=== PATIENT | female | born 1965 | race Caucasian/White ===

== ENCOUNTER 2019-03-26 13:40 | Inpatient (IN) ==
[2019-03-26] MEDS ORDERED: NS 500 ML IV 500 ML IV ONE (13:52)
[2019-03-26] MEDS ORDERED: DUONEB 0.5 MG/3 MG (3 mL) NEB ONE (13:52)
[2019-03-26] MEDS ORDERED: SOLU-Medrol 125 MG VIAL IVP ONE (13:52)
[2019-03-26] MEDS ORDERED: SOLU-Medrol 40 MG VIAL ONE (14:09)
[2019-03-26] MEDS ORDERED: NS 1000 ML 1,000 ML ONE (14:09)
--- NOTE | 2019-03-26 14:17 | DR.SOBA ---
HPI Time Seen Time Seen by Provider: 03/26/19 13:44 Primary Care Physician Primary Care Physician: NIYA Complaints Chief Complaint Doctors Comments: A 53 y/o female presenting with c/o SOB and cough onset yesterday. There is no real exacerbation. She states she has a hx. of COPD but has no maintenance or rescue medications as she can't afford afford meds. She also has a complaint of Rt. hip pain relating to recently being informed that she will need a Rt. hip replacement based on the findings of an MRI study. Chief Complaint:: PT. C/O BODY ACHES, SHORTNESS OF BREATH, COUGH. Reviewed Nurses Notes Reviewed: Yes Source History Provided: Patient Mode of Arrival Mode of Arrival: EMS Timing Onset of Chief Complaint: 03/25/19 Context Onset:: At Rest and With Light Exertion PE Risk Factors:: None History of:: COPD Currently on:: Neither Prehospital Care:: None Modifying Factors Worsens:: Nothing Improves:: Nothing Associated Signs and Symptoms Associated Signs and Symptoms: Cough If Chest Pain Quality: denies Sharp, Stabbing, Squeezing, Pressure like, Heavy, Crushing, Burning, Aching and Pleuritic If Cough Cough: Productive PMH PMH Past Medical History: Yes Past Medical History: CHF and COPD Past Surgical History: Yes Surgical History: , Hysterectomy and Other Past Surgical History Comment: BACK SURGERY Family History History of Family Medical Conditions: Yes Family Medical History: Diabetes Mellitus, Cancer, [place], Coronary Artery Disease, Heart Failure and Hypertension Social History Does patient currently use any type of tobacco product: Yes Have you used tobacco products in the last 12 months: Yes Type of Tobacco Use: Cigarettes Does any household member use tobacco: Yes Alcohol Use: None Do you use any recreational Drugs:: No Lives With: Spouse Lives Where: Home infectious screening In the last 2 months have you had wt loss of >10#?: NO Have you had fever, night sweats or hemotysis?: No Have you traveled outside the country in the last 6 months?: No Isolation: Standard ROS Review of Systems Constitutional: No Symptoms Reported Eyes: No Symptoms Reported ENTM: No Symptoms Reported Respiratoy: Productive Cough and Short of Breath Cardiovascular: No Symptoms Reported Gastrointestinal/Abdominal: No Symptoms Reported Genitourinary: No Symptoms Reported Neurological: No Symptoms Reported Musculoskeletal: Joint Pain (Rt. Hip) Integumentary: No Symptoms Reported Hematologic/Lymphatic: No Symptoms Reported Endocrine: No Symptoms Reported Psychiatric: No Symptoms Reported PE Vital Signs Vitals: Temperature 99.5 F Pulse Rate 99 Respiratory Rate 22 Blood Pressure [Left Arm] 131/63 Blood Pressure 107/59 O2 Sat by Pulse Oximetry 97 General Limitations: No Limitations General Appearance: Alert and In No Apparent Distress Head Head Exam: Normal Inspection, Atraumatic and Normocephalic Eyes Eye exam: Normal Appearance and EOMI ENT ENT Exam: Normal Exam, Normal Oropharynx and Mucous Membranes Moist Neck Neck Exam: Normal Inspection, Full ROM and Trachea Midline Chest Chest Inspection: Normal Inspection and Symmetric Chest Wall Rise Respiratory Respiratory Exam: Normal Lung Sounds Bilat Cardiovascular Cardiovascular Exam: Regular Rate, Normal Rhythm, +S1 and +S2 Abdominal Exam Abdominal Exam: Normal Inspection, Normal Bowel Sounds and Soft Extremities Extremities Exam: Normal Inspection and Full ROM Back Back Exam: Normal Inspection and Full ROM Neurologic Neurological Exam: Alert and Oriented X3 Psychiatric Psychiatric Exam: Normal Affect and Normal Mood Skin Skin Exam: Dry and Normal Color COURSE Reevaluation 1st: Improved 2nd: Improved Consultation Consultation Comments: I spoke with Dr. Bell, her PCP. He agrees to recommendation for admission. [facility] Labs Reviewed Laboratory Results Reviewed?: Yes Result Diagrams: 03/26/19 14:15 Laboratory: WBC 13.2 X10^3/uL (3.6-10.0) H 03/26/19 14:15 RBC 3.61 X10^6/uL (3.5-5.4) 03/26/19 14:15 Hgb 12.3 g/dL (12.0-16.0) 03/26/19 14:15 Hct 34.4 % (36.0-47.0) L 03/26/19 14:15 MCV 95.4 fL (80.0-100.0) 03/26/19 14:15 MCH 33.9 pg (27.0-34.0) 03/26/19 14:15 MCHC 35.6 g/dL (33.0-35.0) H 03/26/19 14:15 RDW 13.3 % (11.6-16.5) 03/26/19 14:15 Plt Count 414 X10^3/uL (150.0-450.0) 03/26/19 14:15 MPV 7.7 fL (7.4-11.0) 03/26/19 14:15 Neut % (Auto) 76.4 % (42.0-75.0) H 03/26/19 14:15 Lymph % (Auto) 15.8 % (21.0-51.0) L 03/26/19 14:15 [place] % (Auto) 6.2 % (0.0-13.0) 03/26/19 14:15 Eos % (Auto) 1.3 % (0.9-2.9) 03/26/19 14:15 Baso % (Auto) 0.3 % (0.2-1.0) 03/26/19 14:15 Neut # (Auto) 10.1 x10^3/uL (2.2-4.8) H 03/26/19 14:15 Lymph # (Auto) 2.1 X10^3/uL (1.3-2.9) 03/26/19 14:15 Andrews # (Auto) 0.8 x10^3/uL (0.3-0.8) 03/26/19 14:15 Eos # (Auto) 0.2 x10^3/uL (0.0-0.2) 03/26/19 14:15 Baso # (Auto) 0.0 X10^3/uL (0.0-0.1) 03/26/19 14:15 Absolute Nucleated RBC 0.0 /100WBC 03/26/19 14:15 Specimen Type Catherized urine 03/26/19 16:31 Urine Color Yellow (YELLOW) 03/26/19 16:31 Urine Appearance Clear (CLEAR) 03/26/19 16:31 Urine pH 7.0 (5.0 - 8.0) 03/26/19 16:31 Ur Specific [place] 1.010 (1.000-1.030) 03/26/19 16:31 Urine Protein Negative (NEGATIVE) 03/26/19 16:31 Urine Glucose (UA) Negative (NEGATIVE) 03/26/19 16:31 Urine Ketones Negative (NEGATIVE) 03/26/19 16:31 Urine Occult Blood Negative (NEGATIVE) 03/26/19 16:31 Urine Nitrite Negative (NEGATIVE) 03/26/19 16:31 Urine Bilirubin Negative (NEGATIVE) 03/26/19 16:31 Urine Urobilinogen Normal (NORMAL) 03/26/19 16:31 Ur Leukocyte Esterase Negative (NEGATIVE) 03/26/19 16:31 Influenza Type A (PCR) Negative (NEGATIVE) 03/26/19 13:59 Influenza Type B (PCR) Negative (NEGATIVE) 03/26/19 13:59 Other Results Comments: History: Shortness of breath Study: Portable upright AP chest Comparison: None Findings: The heart size is normal. There are increased diffuse interstitial lung markings. There is no obvious pleural effusion. There are bilateral apparent breast prostheses. There is no effusion. Impression: Nonspecific increased interstitial lung markings the could be chronic if appropriate exposure history or may represent interstitial edema or pneumonitis. Reported By: XRAY Interpreted by: Self XRAY Findings: Reticular infiltrates b/l. Opioid Opioid Risk Tool Age (Juan Manuel box if 16-45): No History of Preadolescent Sexual Abuse: No Total: 0 Total Score Risk Category: Low Risk Copyright: Bo WERNER predicting aberrant behaviors Diagnosis Discharge Problem: Pulmonary edema with congestive heart failure COPD (chronic obstructive pulmonary disease) Qualifiers: COPD type: unspecified COPD Qualified Code(s): J44.9 - Chronic obstructive pulmonary disease, unspecified
[2019-03-26] MEDS ORDERED: DUONEB 0.5 MG/3 MG (3 mL) ONE (14:21)
[2019-03-26 14:28] LABS: BASOPHILS % (AUTO) 0.3 % (0.2-1.0); EOSINOPHILS # (AUTO) 0.2 x10^3/uL (0.0-0.2); EOSINOPHILS % (AUTO) 1.3 % (0.9-2.9); HEMATOCRIT 34.4 % (36.0-47.0); HEMOGLOBIN 12.3 g/dL (12.0-16.0); LYMPHOCYTES # (AUTO) 2.1 X10^3/uL (1.3-2.9); LYMPHOCYTES % (AUTO) 15.8 % (21.0-51.0); MEAN CORPUSCULAR HEMOGLOBIN 33.9 pg (27.0-34.0); MEAN CORPUSCULAR HGB CONC 35.6 g/dL (33.0-35.0); MEAN CORPUSCULAR VOLUME 95.4 fL (80.0-100.0); MEAN PLATELET VOLUME 7.7 fL (7.4-11.0); MONOCYTES # (AUTO) 0.8 x10^3/uL (0.3-0.8); MONOCYTES % (AUTO) 6.2 % (0.0-13.0); NEUTROPHILS # (AUTO) 10.1 x10^3/uL (2.2-4.8); NEUTROPHILS % (AUTO) 76.4 % (42.0-75.0); PLATELET COUNT 414 X10^3/uL (150.0-450.0); RED BLOOD COUNT 3.61 X10^6/uL (3.5-5.4); RED CELL DISTRIBUTION WIDTH 13.3 % (11.6-16.5); WHITE BLOOD COUNT 13.2 X10^3/uL (3.6-10.0)
[2019-03-26] MEDS ORDERED: LEVAQUIN PREMIX IV 500 MG 500 MG/100 ML BAG IV ONE ×3 (14:52→17:21)
--- NOTE | 2019-03-26 15:07 | RAD ---
History: Shortness of breathStudy: Portable upright AP chestComparison: NoneFindings: The heart size is normal. There are increased diffuse interstitial lung markings. There is no obvious pleural effusion. There are bilateral apparent breast prostheses. There is no effusion.Impression: Nonspecific increased interstitial lung markings the could be chronic if appropriate exposure history or may represent interstitial edema or pneumonitis.Reported By:
[2019-03-26] MEDS ORDERED: LASIX IVP ONE ×2 (15:14→15:17)
[2019-03-26 16:24] LABS: BILIRUBIN,URINE NEGATIVE (NEGATIVE); BLOOD/HEMOGLOBIN,URINE NEGATIVE (NEGATIVE); GLUCOSE, URINE NEGATIVE (NEGATIVE); KETONES,URINE NEGATIVE (NEGATIVE); LEUKOCYTE ESTERASE ,URINE NEGATIVE (NEGATIVE); NITRITES,URINE NEGATIVE (NEGATIVE); PROTEIN,URINE NEGATIVE (NEGATIVE); UROBILINOGEN,URINE NORMAL (NORMAL)
[2019-03-26 16:25] LABS: APPEARANCE,URINE CLEAR (CLEAR); COLOR,URINE PALE YELLOW (YELLOW)
[2019-03-26 16:40] LABS: BILIRUBIN,URINE NEGATIVE (NEGATIVE); BLOOD/HEMOGLOBIN,URINE NEGATIVE (NEGATIVE); GLUCOSE, URINE NEGATIVE (NEGATIVE); KETONES,URINE NEGATIVE (NEGATIVE); LEUKOCYTE ESTERASE ,URINE NEGATIVE (NEGATIVE); NITRITES,URINE NEGATIVE (NEGATIVE); PROTEIN,URINE NEGATIVE (NEGATIVE); UROBILINOGEN,URINE NORMAL (NORMAL)
[2019-03-26 16:46] LABS: APPEARANCE,URINE CLEAR (CLEAR); COLOR,URINE YELLOW (YELLOW)
[2019-03-26 17:32] LABS: BLOOD UREA NITROGEN 8 mg/dL (7-18); CALCIUM 8.9 mg/dL (8.5-10.1); CARBON DIOXIDE 28.7 mmol/L (21-32); CHLORIDE 101 mmol/L (98-107); CREATININE 0.61 mg/dL (0.55-1.02); SODIUM 137 mmol/L (136-145); eGFR NON BLACK RACES > 60 (>60)
[2019-03-26 17:40] LABS: ALANINE AMINOTRANSFERASE 17 Units/L (12-78); ALKALINE PHOSPHATASE 91 Units/L (46-116); ASPARTATE AMINO TRANSFERASE 24 Units/L (15-37); COR CA(FOR HYPOALB) 9.7 mg/dL (8.5-10.1); TOTAL PROTEIN 7.5 g/dL (6.4-8.2)
[2019-03-26] MEDS ORDERED: POTASSIUM CHLORIDE LIQ 20 MEQ UDC PO PRN (17:47)
[2019-03-26] MEDS ORDERED: POTASSIUM CHL 60 MEQ/NS 0.45% 500 ML IV PRN (17:47)
[2019-03-26] MEDS ORDERED: K-RIDER 10 MEQ/NS 100 ML 10 MEQ/100 ML BAG IV PRN (17:47)
[2019-03-26] MEDS ORDERED: KLOR-CON PO PRN (17:47)
[2019-03-26] MEDS ORDERED: POTASSIUM CHL 40 MEQ/NS 0.45% 500 ML IV PRN (17:47)
[2019-03-26] MEDS ORDERED: MAGNESIUM SULFATE 1 GRAM/100 mL PREMIX 1 GM/100 ML BAG IV PRN (17:47)
[2019-03-26] MEDS ORDERED: MICRO K EXTEN CAP 10 MEQ PO PRN (17:47)
[2019-03-26] MEDS ORDERED: K-DUR TAB 20 MEQ PO ONE (18:00)
[2019-03-26] MEDS: K-DUR TAB 20 MEQ PO PRN ×2 (18:12→23:51)
[2019-03-26 19:06] VITALS: BMI 28.1
[2019-03-26] MEDS ORDERED: PREVNAR 13 IM ONE (19:06)
[2019-03-26] MEDS ORDERED: AFLURIA II4 or FLUARIX II4 IM ONE (19:06)
[2019-03-26] MEDS: DUONEB 0.5 MG/3 MG (3 mL) NEB SCH (21:07)
[2019-03-27] MEDS: DUONEB 0.5 MG/3 MG (3 mL) NEB SCH ×7 (00:20→20:39)
--- NOTE | 2019-03-27 06:20 | RAD ---
HISTORY: Follow-up pneumoniaStudy: Chest AP portableComparison: 03/26/2019Findings:The heart is enlarged. No definite congestive heart failure is noted. There is a question of a new infiltrate abutting the minor fissure in the right upper lobe. Follow-up of this area is recommended. The remainder of the lung baugh are clear. Bony thorax is unremarkable.IMPRESSION: Mild cardiomegaly without congestive heart failureQuestionable new infiltrate abutting the minor fissure in the right upper lobe. Follow-up of this area is recommended.Reported By:
[2019-03-27 06:45] LABS: BASOPHILS % (AUTO) 0.2 % (0.2-1.0); HEMOGLOBIN 12.2 g/dL (12.0-16.0); LYMPHOCYTES # (AUTO) 1.5 X10^3/uL (1.3-2.9); LYMPHOCYTES % (AUTO) 8.2 % (21.0-51.0); MEAN CORPUSCULAR HEMOGLOBIN 30.5 pg (27.0-34.0); MEAN CORPUSCULAR VOLUME 92.3 fL (80.0-100.0); MEAN PLATELET VOLUME 8.4 fL (7.4-11.0); MONOCYTES # (AUTO) 1.2 x10^3/uL (0.3-0.8); MONOCYTES % (AUTO) 6.2 % (0.0-13.0); NEUTROPHILS % (AUTO) 85.4 % (42.0-75.0); PLATELET COUNT 445 X10^3/uL (150.0-450.0); RED CELL DISTRIBUTION WIDTH 13.6 % (11.6-16.5); WHITE BLOOD COUNT 18.7 X10^3/uL (3.6-10.0)
[2019-03-27 07:02] LABS: ALANINE AMINOTRANSFERASE 18 Units/L (12-78); ALBUMIN 2.9 g/dL (3.4-5.0); ALKALINE PHOSPHATASE 111 Units/L (46-116); ASPARTATE AMINO TRANSFERASE 26 Units/L (15-37); BLOOD UREA NITROGEN 10 mg/dL (7-18); CALCIUM 8.9 mg/dL (8.5-10.1); CARBON DIOXIDE 24.9 mmol/L (21-32); CHLORIDE 102 mmol/L (98-107); COR CA(FOR HYPOALB) 9.8 mg/dL (8.5-10.1); COR NA(FOR HYPERGLY) 137 mmol/L (136-145); SODIUM 136 mmol/L (136-145); TOTAL PROTEIN 7.5 g/dL (6.4-8.2); eGFR NON BLACK RACES > 60 (>60)
[2019-03-27] MEDS: LASIX IVP SCH (09:29)
[2019-03-27] MEDS: K-DUR TAB 20 MEQ PO PRN (09:29)
[2019-03-27] MEDS: LEVAQUIN PREMIX IV 500 MG 500 MG/100 ML BAG IV SCH (09:29)
[2019-03-27] MEDS: XANAX PO PRN ×2 (12:44→23:11)
[2019-03-27] MEDS: NORCO 10/325 TAB PO PRN ×2 (12:45→20:52)
--- NOTE | 2019-03-27 13:18 | DR.H&P ---
H&P - History & Physical for Day of: H&P Date: 03/26/19 - Chief Complaint Chief Complaint: BODY ACHES, COUGH, SOB - History of Present Illness History of Present Illness: IS A 53 YEAR OLD PATIENT OF OURS WHO PRESENTED TO THE ER WITH COMPLAINTS OF BODY ACHES, SHORTNESS OF BREATH, AND COUGH. SYMPTOMS STARTED ONE DAY PRIOR AND HAVE PROGRESSIVELY GOTTEN WORSE. SHE REPORTS A PMH OF COPD AND CHF, BUT HAS NO MAINTENANCE OR RESCUE MEDICATIONS. ON ARRIVAL, VITALS WERE 99.5-100-22-76%NC-111/71. SHE WAS PLACED ON NASAL CANNULA AT 3 LPM. SATURATIONS INCREASED TO 96%. LABS WERE OBTAINED. ABNORMAL LAB VALUES INCLUDE THE FOLLOWING: WBC 13.2, HCT 34.4, POTASSIUM 2.8, GLUCOSE 109, ALBUMIN 3.0. URINALYSIS UNREMARKABLE. INFLUENZA NEGATIVE. BLOOD CULTURES OBTAINED. A CHEST XRAY WAS OBTAINED AND REVEALED: Nonspecific increased interstitial lung markings the could be chronic if appropriate exposure history or may represent interstitial edema or pneumonitis. SHE WAS GIVEN LASIX 40MG IV X 1, LEVAQUIN 500MG IV X 1, SOLU-MEDROL 80MG IV X 1, A DUONEB, AND A NORMAL SALINE BOLUS. SHE WAS ADMITTED FOR [facility]ITICAL ACCESS [facility]OSPITAL EVALUATION AND TREATMENT OF PNEUMONIA, PULMONARY EDEMA, COPD, AND DYSPNEA. SHE WAS STARTED ON RESPIRATORY TX, LASIX 40MG IV DAILY, LEVAQ UIN 500MG IV DAILY, AND THE POTASSIUM AND MAGNESIUM PROTOCOL. WE PLAN TO FOLLOW UP WITH AM LABS AND CHEST XRAY AND CONTINUE TO MONITOR. - Past Medical History Past Medical History: COPD, CHF - Past Surgical History Surgical History: Hysterectomy - Family History Family Medical History: Diabetes Mellitus, Cancer - Social History Does patient currently use any type of tobacco product: Yes Have you used tobacco products in the last 12 months: Yes Type of Tobacco Use: Cigarettes How many years tobacco product used: 40 Packs per day or dips/chews per day: 1/2 PACK Does any household member use tobacco: Yes Alcohol Use: Occasionally Drug Use: None Prescription drug monitoring program results: PDMP was not reviewed - Medications Home Medications: No Known Drug Allergies Allergy (Verified 03/26/19 13:47) CONTINUE taking the following medications alprazolam [Xanax] 1 mg PO PRN PRN 03/26/19 [History] gabapentin [Neurontin] 300 mg PO TID PRN 03/26/19 [History] hydrocodone-acetaminophen [[place]] 1 tab PO TID PRN 03/26/19 [History] losartan-hydrochlorothiazide 1 tab PO DAILY 03/26/19 [History] phentermine [Adipex-P] 37.5 mg PO DAILY 03/26/19 [History] - Review of Systems Constitutional: Weakness Eyes: No Symptoms Reported ENT: No Symptoms Reported Respiratory: Cough, Shortness of Breath, SOB with Excertion Cardiovascular: No Symptoms Reported Gastrointestinal: No Symptoms Reported Genitourinary: No Symptoms Reported Musculoskeletal: Other (BODY ACHES ) Skin: No Symptoms Reported Neurological: Weakness - Physical Exam Vital Signs: Temperature 97.9 F Pulse Rate [Left Brachial] 80 Pulse Rate 101 Respiratory Rate 20 Blood Pressure [Left Arm] 96/55 Blood Pressure 124/85 O2 Sat by Pulse Oximetry 96 Oriented: Normal Eyes: Normal Ear: Normal Nose: Normal Throat: Normal Respiratory: Diminished Throughout Cardiovascular: Normal. negative: S3, S4, Murmur : Normal Auscultation: Bowel Sounds: Normal Palpation: Normal Tenderness: Normal Skin: Normal Musculoskeletal: Normal Psychiatric: Normal Mood Description: Calm Affect: Normal Speech Pattern: Clear - Assessment/Plan (1) Pneumonia Qualifiers: Pneumonia type: due to unspecified organism Laterality: unspecified laterality Lung location: unspecified part of lung Qualified Code(s): J18.9 - Pneumonia, unspecified organism Status: Acute Plan: LEVAQUIN, RESPIRATORY [place], SUPPLEMENTAL OXYGEN, CONTINUE TO MONITOR (2) Pulmonary edema Qualifiers: Chronicity: chronic Qualified Code(s): J81.1 - Chronic pulmonary edema Status: Acute Plan: LASIX 40MG IV DAILY, CONTINUE TO MONITOR (3) COPD (chronic obstructive pulmonary disease) Qualifiers: COPD type: unspecified COPD Qualified Code(s): J44.9 - Chronic obstructive pulmonary disease, unspecified Status: Acute (4) Dyspnea Qualifiers: Dyspnea type: shortness of breath Qualified Code(s): R06.02 - Shortness of breath; R06.00 - Dyspnea, unspecified; R06.01 - Orthopnea Status: Acute - Allergies Allergies/Adverse Reactions: Allergies Allergy/AdvReac Type Severity Reaction Status Date / Time No Known Drug Allergies Allergy Verified 03/26/19 13:47
[2019-03-27] MEDS ORDERED: PREVNAR 13 IM ONE (14:00)
[2019-03-27] MEDS ORDERED: AFLURIA II4 or FLUARIX II4 IM ONE (14:00)
[2019-03-27] MEDS: NEURONTIN CAP 300 MG PO PRN ×2 (14:13→23:11)
[2019-03-28] MEDS: DUONEB 0.5 MG/3 MG (3 mL) NEB SCH ×3 (01:05→09:15)
[2019-03-28 04:39] LABS: BASOPHILS % (AUTO) 0.2 % (0.2-1.0); EOSINOPHILS # (AUTO) 0.2 x10^3/uL (0.0-0.2); EOSINOPHILS % (AUTO) 2.7 % (0.9-2.9); HEMATOCRIT 32.1 % (36.0-47.0); HEMOGLOBIN 11.8 g/dL (12.0-16.0); LYMPHOCYTES # (AUTO) 1.5 X10^3/uL (1.3-2.9); LYMPHOCYTES % (AUTO) 17.1 % (21.0-51.0); MEAN CORPUSCULAR HEMOGLOBIN 35.5 pg (27.0-34.0); MEAN CORPUSCULAR HGB CONC 36.6 g/dL (33.0-35.0); MEAN CORPUSCULAR VOLUME 97.1 fL (80.0-100.0); MEAN PLATELET VOLUME 7.6 fL (7.4-11.0); MONOCYTES # (AUTO) 0.8 x10^3/uL (0.3-0.8); MONOCYTES % (AUTO) 8.6 % (0.0-13.0); NEUTROPHILS # (AUTO) 6.4 x10^3/uL (2.2-4.8); NEUTROPHILS % (AUTO) 71.4 % (42.0-75.0); PLATELET COUNT 429 X10^3/uL (150.0-450.0); RED BLOOD COUNT 3.31 X10^6/uL (3.5-5.4); RED CELL DISTRIBUTION WIDTH 13.5 % (11.6-16.5)
[2019-03-28 04:45] LABS: ALANINE AMINOTRANSFERASE 51 Units/L (12-78); ALBUMIN 2.6 g/dL (3.4-5.0); ALKALINE PHOSPHATASE 106 Units/L (46-116); ASPARTATE AMINO TRANSFERASE 67 Units/L (15-37); BLOOD UREA NITROGEN 8 mg/dL (7-18); CALCIUM 8.8 mg/dL (8.5-10.1); CARBON DIOXIDE 26.9 mmol/L (21-32); CHLORIDE 100 mmol/L (98-107); COR CA(FOR HYPOALB) 9.9 mg/dL (8.5-10.1); COR NA(FOR HYPERGLY) 134 mmol/L (136-145); CREATININE 0.57 mg/dL (0.55-1.02); SODIUM 134 mmol/L (136-145); TOTAL PROTEIN 7.3 g/dL (6.4-8.2); eGFR NON BLACK RACES > 60 (>60)
--- NOTE | 2019-03-28 06:40 | RAD ---
HISTORY: Shortness of breathStudy: Chest AP portableComparison: 03/27/2019Findings:The heart remains mildly enlarged. No definite congestive heart failure on today's examination. The lungs appear free of acute alveolar infiltrates. A definite right upper lobe infiltrate is not identified. No pleural effusions are identified. The bony thorax is unremarkable.IMPRESSION: Continued mild cardiomegaly without congestive heart failureNo definite acute infiltrates on today's examinationReported By:
[2019-03-28] MEDS: LASIX IVP SCH (09:16)
[2019-03-28] MEDS: LEVAQUIN PREMIX IV 500 MG 500 MG/100 ML BAG IV SCH (09:17)
[2019-03-28] MEDS: NORCO 10/325 TAB PO PRN (10:39)
[2019-03-28 10:48] VITALS: BP 118/72
[2019-03-28] MEDS ORDERED: MILK OF MAGNESIA PO SCH (21:00)
[2019-03-28] MEDS ORDERED: COLACE CAP 100 MG PO SCH (21:00)
== END 2019-03-28 11:15 | disposition home or self-care (01) | DRG 178 ==
LOC: ER 13:40 → ICU 17:12
PROVIDERS: ADMIT Internal Medicine; ATTEND Internal Medicine
DX: R06.02 Shortness of breath; J81.1 Chronic pulmonary edema; J15.6 Pneumonia due to other Gram-negative bacteria; Z23 Encounter for immunization; J44.9 Chronic obstructive pulmonary disease, unspecified; R26.89 Other abnormalities of gait and mobility
CPT/HCPCS: 36415; 51702; 71010; 71020; 71045; 71046; 80053; 81003; 83735; 84132; 85025; 87040; 87070; 87077; 87186; 87205; 87502; 90670; 90674; 90686; 94640; 96365; 96374; 96375; 97162; 97167; 97535; 99284; A4222; J1940; J1956; J2920; J7030; J7620